=== PATIENT | female | born 1995 | race Caucasian/White ===

== ENCOUNTER 2017-06-03 08:02 | Emergency (ER) | payer OTHER ==
--- NOTE | 2017-06-03 08:25 | ED.PDOC ---
History of Present Illness - General Chief Complaint: [employer] Problem Stated Complaint: possible miscarriage Time Seen by Provider: 06/03/17 08:13 Source: patient, RN notes reviewed, Vital Signs reviewed - History of Present Illness Initial Comments: Patient comes in with c/o of heavy vaginal bleeding that started last night. Reports she is based on test and sono done at [facility] 2 days ago. Per patient nothing was seen on sonogram. She had her IDU out in March and has not had a period since. She reports heavy bleeding, cramping and diarrhea but can't quantify how much bleeding since she has not had a period in a long time. Timing/Duration: yesterday Quality: moderate, cramping Onset Location: suprapubic Radiation: none Activites at Onset: rest Prior abdominal problems: none Sexual intercourse history: single partner Improving Factors: nothing Worsening Factors: nothing Associated Symptoms: abdominal pain Allergies/Adverse Reactions: Allergies NO KNOWN ALLERGY Allergy (Verified 11/07/14 14:33) Home Medications: Ambulatory Orders NK [NK] 06/03/17 Review of Systems - Review of Systems Constitutional: States: no symptoms reported Respiratory: States: no symptoms reported Cardiology: States: no symptoms reported Gastrointestinal/Abdominal: States: abdominal pain, diarrhea. Denies: nausea, vomiting Genitourinary: States: see HPI Musculoskeletal: States: no symptoms reported Skin: States: no symptoms reported All other Systems: No Change from Baseline Past Medical History (General) - Patient Medical History Hx Seizures: No Hx Stroke: No Hx Dementia: No Hx Asthma: Yes Hx of COPD: No Hx Cardiac Disorders: No Hx Congestive Heart Failure: No Hx Pacemaker: No Hx Hypertension: No Hx Thyroid Disease: No Hx Diabetes: No Hx Gastroesophageal Reflux: No Hx Renal Disease: No Hx Cancer: No Hx of HIV: No Hx Hepatitis C: No Hx MRSA: No - Vaccination History Hx Tetanus, Diphtheria Vaccination: No Hx Influenza Vaccination: No Hx Pneumococcal Vaccination: No - Social History Hx Tobacco Use: Yes Hx Chewing Tobacco Use: No Hx Alcohol Use: No Hx Substance Use: No Hx Substance Use Treatment: No Hx Depression: No Hx Physical Abuse: No Hx Emotional Abuse: No Hx Suspected Abuse: No - Female History Patient is a Female of Child Bearing Age (10 -59 yrs old): Yes Patient : Yes Family Medical History - Family History Mother Family History: No Known Living Status: Still Living Physical Exam - Physical Exam General Appearance: Alert, Comfortable, No apparent distress, Well Developed, Well Groomed, Well Hydrated, Well Nourished Neck: non-tender, full range of motion, supple, normal inspection Cardiovascular/Respiratory: regular rate, rhythm, no M/R/G, normal breath sounds , no respiratory distress Gastrointestinal/Abdominal: normal bowel sounds, soft, tenderness - mild, diffuse tenderness to palpation Extremity: normal range of motion, normal inspection Neurologic: alert, normal mood/affect, oriented x 3 Skin Exam: normal color, warm/dry Comments: Vital Signs 06/03/17 08:14 Temperature 98.5 F Pulse Rate [ 107 H Left Brachial] Respiratory 16 Rate Blood Pressure 120/82 [Left Arm] O2 Sat by Pulse 99 Oximetry Progress - Progress Progress: 06/03/17 09:14 HCG of 63 puts her @ 1-2 weeks . Explained at this point we don't do anything to stop the miscarriage. Advised she is most likely bleed for 3-7 days and that she needs to follow up with her DrNikki within a week to recheck her HcG level and be sure it returns to 0. Advised some form of control since she had her IUD removed and does not want to get at this time. - Results/Orders Results/Orders: Laboratory Results - last 24 hr 06/03/17 08:30 Beta HCG, Quant 63.6 H Departure - Departure Clinical Impression: Spontaneous Time of Disposition: : Disposition: Discharge to Home or Self Care Condition: Good Departure Forms: ED Discharge - Pt. Copy, Patient Portal Self Enrollment Instructions: DI for Miscarriage Diet: resume usual diet Activity: increase activity as tolerated Referrals: LUPE TOM [Primary Care Provider] - 1 Week Home Medications: Ambulatory Orders NK [NK] 06/03/17
[2017-06-03 08:31] VITALS: BP 120/82; TEMP 98.5; O2SAT 99
== END 2017-06-03 09:30 | disposition home or self-care (01) ==
LOC: ER 08:02
DX: O03.9 Complete or unspecified spontaneous abortion without complication (principal); J45.909 Unspecified asthma, uncomplicated; Z87.891 Personal history of nicotine dependence

== ENCOUNTER 2017-06-26 07:14 | Emergency (ER) | payer OTHER ==
[2017-06-26 07:30] VITALS: TEMP 97.5
--- NOTE | 2017-06-26 07:33 | ED.PDOC ---
History of Present Illness - General Chief Complaint: GI Problem Stated Complaint: N/V/D Time Seen by Provider: 06/26/17 07:32 Source: patient Exam Limitations: no limitations - History of Present Illness Initial Comments: Glendy Pandey 21 y/o female stated that ate bulgarian food 5 days ago and a day later had nausea,vomiting diarrhea-watery which still on and off for last 5 days.Able to eat but sometimes gets nauseated.No recent antibiotic use,no ill contact no foreign travel no fever ,no abdominal pains. Timing/Duration: other - 5 days Severity: moderate Improving Factors: nothing Worsening Factors: nothing Associated Symptoms: other - see hpi Allergies/Adverse Reactions: Allergies NO KNOWN ALLERGY Allergy (Verified 11/07/14 14:33) Home Medications: Ambulatory Orders NK [NK] 06/03/17 Review of Systems - Review of Systems Constitutional: States: no symptoms reported EENTM: States: no symptoms reported Respiratory: States: no symptoms reported Cardiology: States: no symptoms reported Gastrointestinal/Abdominal: States: see HPI Genitourinary: States: no symptoms reported Musculoskeletal: States: no symptoms reported Skin: States: no symptoms reported Neurological: States: no symptoms reported Endocrine: States: no symptoms reported Past Medical History (General) - Patient Medical History Hx Seizures: No Hx Stroke: No Hx Dementia: No Hx Asthma: Yes Hx of COPD: No Hx Cardiac Disorders: No Hx Congestive Heart Failure: No Hx Pacemaker: No Hx Hypertension: No Hx Thyroid Disease: No Hx Diabetes: No Hx Gastroesophageal Reflux: No Hx Renal Disease: No Hx Cancer: No Hx of HIV: No Hx Hepatitis C: No Hx MRSA: No Surgical History: other - ,orif-right forearm - Vaccination History Hx Tetanus, Diphtheria Vaccination: No Hx Influenza Vaccination: No Hx Pneumococcal Vaccination: No - Social History Hx Tobacco Use: No Hx Chewing Tobacco Use: No Hx Alcohol Use: No Hx Substance Use: No Hx Substance Use Treatment: No Hx Depression: No Hx Physical Abuse: No Hx Emotional Abuse: No Hx Suspected Abuse: No - Activities of Daily Living Patient Lives Alone: No - family - Female History Patient is a Female of Child Bearing Age (10 -59 yrs old): Yes - had a miscarriage 3 weeks ago Patient : No Family Medical History - Family History Mother Family History: No Known Living Status: Still Living Physical Exam - Physical Exam General Appearance: Alert, Comfortable, No apparent distress Eye Exam: bilateral normal Ears, Nose, Throat: hearing grossly normal, normal ENT inspection Neck: non-tender, full range of motion Respiratory: chest non-tender, lungs clear, normal breath sounds Cardiovascular/Chest: normal peripheral pulses, regular rate, rhythm, no murmur Peripheral Pulses: radial,right: 1+, radial,left: 1+ Gastrointestinal/Abdominal: normal bowel sounds, non tender, soft, no organomegaly Back Exam: no CVA tenderness Extremity: normal range of motion, non-tender, normal inspection Neurologic: alert, normal mood/affect, oriented x 3 Skin Exam: normal color, warm/dry Lymphatic: no adenopathy Progress - Progress Progress: 06/26/17 08:09 Vital Signs - 8 hr 06/26/17 07:26 Temperature 97.5 F L Pulse Rate [ 95 H Left Brachial] Respiratory 16 Rate Blood Pressure 113/74 [Left Arm] O2 Sat by Pulse 98 Oximetry Departure - Departure Clinical Impression: Nausea & vomiting Qualifiers: Vomiting type: unspecified Vomiting Intractability: unspecified Qualified Code( s): R11.2 - Nausea with vomiting, unspecified Diarrhea Qualifiers: Diarrhea type: unspecified type Qualified Code(s): R19.7 - Diarrhea, unspecified Time of Disposition: 08:10 Disposition: Discharge to Home or Self Care Condition: Good Departure Forms: ED Discharge - Pt. Copy, Patient Portal Self Enrollment Instructions: Diarrhea (Alternative Therapy), Diarrhea, Probiotics May Decrease Intensity and Duration of Diarrhea Due to Infection, Nausea and Vomiting-Adult, Loperamide Diet: other - AVOID GREASY;SPICY,DAIRY FOODS UNTIL BETTER Referrals: LUPE TOM [Primary Care Provider] - 1-2 Weeks Home Medications: Ambulatory Orders NK [NK] 06/03/17 Additional Instructions: May take IMODIUM (otc) 2 Capsules orally am/pm for watery stools and Probiotic one capsule am/pm;EXCUSE FROM WORK TODAY 06/26/2017;RETURN TO WORK 06/27/2017 no restrictions;Return to emergency room as needed
[2017-06-26] MEDS ORDERED: PROMETHAZINE HCL INJ 25 MG/ML VIAL IM ONE (07:34)
[2017-06-26] MEDS ORDERED: LACTATED RINGERS 1,000 ML IVS ONE (07:34)
[2017-06-26] MEDS ORDERED: HYOSCYAMINE SULFATE 0.125 MG TAB PO ONE (07:34)
[2017-06-26 08:48] VITALS: BP 116/73; O2SAT 100
== END 2017-06-26 08:48 | disposition home or self-care (01) ==
LOC: ER 07:14
DX: R11.2 Nausea with vomiting, unspecified (principal); R19.7 Diarrhea, unspecified
CPT/HCPCS: J2550; J7120